=== PATIENT | male | born 2000 | race Caucasian/White ===

== ENCOUNTER 2020-09-29 14:05 | Outpatient (RCR) | payer MEDICARE, SELFPAY | END 2020-11-22 23:59 | LOC: IMMUN 14:05 | PROVIDERS: Visit Provider Family Medicine | DX: Z23 Encounter for immunization (principal) | CPT/HCPCS: 0001A; 0002A; 91300 ==

== ENCOUNTER 2021-08-25 14:26 | Emergency (ER) | payer BC, SELFPAY ==
[2021-08-25 14:26] VITALS: BP 146/93; PULSE 85; RESP 16; TEMP 36.4; O2SAT 99; BMI 17.9
--- NOTE | 2021-08-25 15:19 | EDS_ITS ---
HPI <TIARA Newton - Last Filed: 08/25/21 15:23> History of Present Illness Chief Complaint: Laceration Narrative Narrative: 21-year-old [id number] male presents with right middle finger laceration from scissors that occurred about an hour ago. Bleeding controlled. No weakness, numbness, tingling. Tetanus up-to-date. PFSH <TIARA Newton - Last Filed: 08/25/21 15:23> PFSH Medical History Asthma Eosinophilic esophagitis Non-smoker Home Medications albuterol sulfate 90 inh INHALATION Q4H PRN PRN 08/25/21 [History Last Taken Unknown] dupilumab [Dupixent Syringe] 300 mg SUBCUT QWEEK 08/25/21 [History Last Taken Unknown] montelukast [Singulair] 10 mg PO DAILY 08/25/21 [History Last Taken Unknown] omeprazole 40 mg PO DAILY 08/25/21 [History Last Taken Unknown] Allergy/AdvReac Type Severity Reaction Status Date / Time bee venom protein (honey bee) Allergy Anaphylaxis Verified 08/25/21 14:28 latex Allergy Rash Verified 08/25/21 14:28 lavender (Lavandula Allergy Rash Verified 08/25/21 14:28 angustifolia) peanut Allergy Anaphylaxis Verified 08/25/21 14:28 tree nut Allergy Anaphylaxis Verified 08/25/21 14:28 Social History Smoking Status: Never smoker ROS <TIARA Newton - Last Filed: 08/25/21 15:23> ROS ED ROS Narrative Constitutional: Negative for fever, chills, malaise. Eyes: Negative for visual change. ENT: Negative for sore throat, ear pain, rhinorrhea. CVS: Negative for palpitations, chest pain, syncope. Respiratory: Negative for shortness of breath, cough, orthopnea. GI: Negative for abdominal pain, nausea, vomiting. : Negative for dysuria, hematuria or frequency. Neuro: Negative for headache, motor/sensory dysfunction. Skin: Positive for wound. Negative for rash, abscess. Musc: Negative for joint pain, swelling, trauma. Heme: Negative for easy bruising, bleeding, lymphadenopathy. EXAM <TIARA Newton - Last Filed: 08/25/21 15:23> Physical Exam Narrative Exam Narrative: CONST: Patient sitting in no acute distress. EYES: Normal inspection. ENT: Normal inspection. NECK: Normal inspection. RESP: No respiratory distress, CTAB. CVS: Regular rate and rhythm, no murmur, no gallop. SKIN: 1 cm very superficial laceration on the pad of the right middle finger. No skin flap or bleeding. EXTREMITIES: Normal appearance, no pedal edema. Full range of motion of the right hand and digits, capillary refill less than 5 seconds, 2+ radial pulse. NEURO: Oriented x4. PSYCH: Normal affect. Const Vital Signs: 08/25/21 14:26 Temperature 97.6 F L Temperature Source Temporal Pulse Rate 85 Respiratory Rate 16 Blood Pressure 146/93 H Blood Pressure Mean 110 Pulse Ox 99 Oxygen Delivery Method Room Air <Dr. Maverick Ardon MD - Last Filed: 08/25/21 15:30> Physical Exam Const Vital Signs: 08/25/21 14:26 Temperature 97.6 F L Temperature Source Temporal Pulse Rate 85 Respiratory Rate 16 Blood Pressure 146/93 H Blood Pressure Mean 110 Pulse Ox 99 Oxygen Delivery Method Room Air [facility] <TIARA Newton - Last Filed: 08/25/21 15:23> [facility] Narrative Medical decision making narrative: Patient presents with a laceration to his right middle finger. It is 1 cm cut on his right middle finger pad. There is no skin flap and really no indication for closure with sutures because it is very superficial. Extremity is neurovascularly intact. It was thoroughly cleansed with sterile saline and closed with skin glue. Tetanus is up-to-date. Patient was discharged in stable condition. 1. Laceration, right middle finger <Dr. Maverick Ardon MD - Last Filed: 08/25/21 15:30> [facility] Narrative Medical decision making narrative: Evaluate the patient with our physician staff physical therapy assistant. Very minor laceration to his right long finger after cutting with scissors. Patient has full range of motion. Normal sensation. Area was repaired with Dermabond. And he will be discharged home. His tetanus is up-to-date. Discharge Plan Triage Chief Complaint: Laceration ED Provider: Jeny Stallings Dx/Rx/DC Orders Clinical Impression: Finger laceration Instructions: Discharge Instructions Wound ... Prescriptions: No Action omeprazole 40 mg capsule,delayed release(DR/EC) 40 mg PO DAILY RF: 0 montelukast [Singulair] 10 mg Tablet 10 mg PO DAILY RF: 0 albuterol sulfate 90 mcg/actuation HFA aerosol inhaler 90 inh INHALATION Q4H PRN PRN (Reason: wheezing) RF: 0 Dupixent Syringe 300 mg/2 mL syringe 300 mg SUBCUT QWEEK RF: 0 Referrals: KELSI WOLFF [Other] Activity Restrictions/Additional Instructions: The skin glue will fall off on its own. You can shower as normal. Disposition Disposition: Home, Self Care
[2021-08-25 15:56] VITALS: BP 139/64; PULSE 82; RESP 15; O2SAT 99
== END 2021-08-25 15:57 | disposition home or self-care (01) ==
PROVIDERS: Emergency Provider Physician Assistant; Visit Provider Physician Assistant
DX: S61.212A Laceration without foreign body of right middle finger without damage to nail, initial encounter (principal); W27.2XXA Contact with scissors, initial encounter; Z79.899 Other long term (current) drug therapy
CPT/HCPCS: 12001; 99282